=== PATIENT | male | born 1990 | race Caucasian/White ===

== ENCOUNTER 2023-11-14 10:34 | Emergency (ER) | payer OTHER, SELFPAY ==
[2023-11-14 11:05] VITALS: BP 155/90
--- NOTE | 2023-11-14 11:16 | ED.GENMED ---
History of Present Illness
General
Chief Complaint: Flank Pain
Time Seen by Provider: 11/14/23 11:04
History of Present Illness
History of Present Illness:
33-year-old male with no past medical history presents the emergency department for evaluation of acute onset right upper quadrant and right flank pain beginning earlier this morning. He had nausea with no vomiting or diarrhea. Pain is improved
with some present at this time. Denies any fever, chills, or sweats. No prior abdominal surgeries
Review of Systems
Review of Systems
Allergies reviewed?: Yes
All Other Systems: ROS reviewed and negative except as documented in HPI and ROS
Phy Exam
Physical Exam
Physical Exam:
GEN: Well appearing, NAD, WDWN
HEENT: Oral mucosa moist, no scleral icterus
Cardiac: Regular rate
Lung: No respiratory distress, no tachypnea
Abdomen: Soft, focal right upper quadrant tenderness with a negative Rondon sign, no rigidity
MSK: No gross deformity or injuries
Skin: Good color, no pallor or jaundice, no rashes
Neuro: AO x3, moves all extremities freely
Psych: Calm, cooperative
Course
Orders/Labs/Results
Orders:
Orders
11/14/23 11:10
CBC/With Diff [Complete Blood Count/With Diff] Urgent
CMP [Comprehensive Metabolic Panel] Urgent
11/14/23 11:15
US Abdomen Complete/Upper Urgent
Comment:
Reason For Exam: RUQ pain
11/14/23 11:33
Urinalysis Reflex To Culture Urgent
Date Specimen was Collected: 11/14/23
Time Specimen was Collected: 11:33
11/14/23 12:43
Ketorolac [Toradol] 15 mg IV NOW STA
Abnormal Lab Results
11/14/23
11:10
WBC 12.6 H 10^3/uL
(4.8-10.8)
Absolute Neuts (auto) 9.4 H 10^3/uL
(1.4-6.5)
Absolute Monos (auto) 1.2 H 10^3/uL
(0.1-0.6)
Lymphocytes % 15.0 L %
(20.5-51.1)
BUN 21 H mg/dl
(9-20)
Glucose 113 H mg/dl
(70-99)
Calcium 10.3 H mg/dl
(8.4-10.2)
11/14/23 11:10
11/14/23 11:10
Vital Signs
Initial and Last Documented VS:
Initial Vital Signs
BP
155/90
11/14/23 11:05
Last Documented Vital Signs
Temp Pulse Resp BP
98.1 F 64 19 138/94
11/14/23 13:08 11/14/23 13:00 11/14/23 13:00 11/14/23 13:00
MDM/Problems Addressed
MDM/Problems Addressed:
Patient's workup is unremarkable. Ultrasound obtained to evaluate for hydronephrosis or biliary disease however this was reassuring. His pain improved with IV anti-inflammatories in the emergency department. May be self-limited illness, do not
strongly suggest peptic ulcer disease. Clinically stable at time of discharge
*Critical Care Note
Total Time (30-74mins, 75-104mins- exclusive of procedures): Not Applicable
ED Attending Note
-
Portions of this chart may have been created with voice recognition software.� Occasional wrong word or��sound alike� substitutions may have occurred due to the inherent limitations of voice recognition software.
Discharge Plan
Departure
Patient Disposition: Home (Routine Discharge)
Date of Disposition: 11/14/23
Time of Disposition: 12:46
Patient with high blood pressure during this ER visit?: Yes
Discharge Problem:
Acute upper abdominal pain
Instructions: Abdominal Pain
Referrals:
UNKNOWN - PT DOES,NOT KNOW [Family Provider] -
Interventions
Interventions:
*Risk Screen - Suicide Last Done: 11/14/23 10:40
*General Assessment Last Done: 11/14/23 10:40
*Neglect/Abuse Screening Last Done: 11/14/23 10:40
*ED COVID-19 Vaccine History Last Done: 11/14/23 10:41
*Nursing Disposition Last Done: 11/14/23 13:08
IR-Owaaan-Sryfyvlssw Assessment Last Done: 11/14/23 11:29
ED-Male Genitourinary Assessment Last Done: 11/14/23 11:29
Discharge Date and Time
Discharge Date/Time: 11/14/23 13:11
Print Language: CHINESE
[2023-11-14 11:20] LABS: % Basophils 0.3 % (0-2); % Eosinophils 0.6 % (0-6); % Immature Granulocytes 0.3 % (0-0.5); % Monocytes 9.3 % (1.7-9.3); % Neutrophils 74.5 % (42.2-75.2); Absolute Eosinophils 0.1 10^3/uL (0-0.7); Absolute Lymphocytes 1.9 10^3/uL (1.2-3.4); Absolute Monocytes 1.2 10^3/uL (0.1-0.6); Absolute Neutrophils 9.4 10^3/uL (1.4-6.5); Hematocrit 42.1 % (39.0-52.0); Hemoglobin 14.5 g/dL (13.0-18.0); Mean Corp Hgb Conc. 34.4 g/dL (33.0-37.0); Mean Corpuscular Hgb 27.9 pg (27.0-31.0); Mean Corpuscular Volume 81.1 fL (80.0-94.0); Nucleated Red Blood Cells % 0 % (-); Platelet Count 280 10^3/uL (130-400); Red Blood Cell Count 5.19 10^6/uL (4.70-6.10); White Blood Cell Count 12.6 10^3/uL (4.8-10.8)
[2023-11-14 11:37] LABS: ALT (SGPT) 27 U/L (0-50); AST (SGOT) 25 U/L (17-59); Albumin 4.6 g/dl (3.5-5.0); Alkaline Phosphatase 64 U/L (38-126); Blood Urea Nitrogen 21 mg/dl (9-20); Calcium 10.3 mg/dl (8.4-10.2); Carbon Dioxide 26 mmol/L (22-30); Chloride 103 mmol/L (98-107); Glucose 113 mg/dl (70-99); Potassium 4.5 mmol/L (3.5-5.1); Sodium 140 mmol/L (135-145); Total Bilirubin 0.8 mg/dl (0.2-1.3); Total Protein 7.2 g/dl (6.3-8.2); eGFR > 60.00
[2023-11-14 12:12] LABS: Urine Albumin Negative (Neg - Trace); Urine Bilirubin Negative (Negative); Urine Character Clear (Clear); Urine Color Yellow; Urine Glucose Negative (Negative); Urine Ketone Negative (Negative); Urine Leukocyte Negative (Negative); Urine Nitrite Negative (Negative); Urine Occult Blood Negative (Negative); Urine Urobilinogen Negative (Neg - 1+)
[2023-11-14 13:00] VITALS: BP 138/94
[2023-11-14] MEDS: TORADOL 15 MG IV (13:00)
== END 2023-11-14 13:11 | disposition home or self-care (01) ==
LOC: EMR 10:34
PROVIDERS: Physician Assistant; EMERGENCY PHYSICIAN Emergency Medicine
DX: R10.10 Upper abdominal pain, unspecified (principal)
CPT/HCPCS: 99284; 96374; 76700; 80053; 81003; 85025